=== PATIENT | male | born 2000 | race Two or more races ===

== ENCOUNTER 2024-03-07 02:31 | Emergency (ER) | payer SELFPAY ==
[~2024-03-07] VITALS: Ht 167.6 cm; Wt 74.8 kg
[2024-03-07 02:44] VITALS: BP 131/79; TEMP 98.2; O2SAT 98
== END 2024-03-07 03:45 | disposition left against medical advice (07) ==
LOC: ER 02:45
DX: M54.9 Dorsalgia, unspecified (principal); V99.XXXA Unspecified transport accident, initial encounter; Y93.89 Activity, other specified; Y92.89 Other specified places as the place of occurrence of the external cause; Y99.8 Other external cause status